=== PATIENT | male | born 1960 | race Caucasian/White ===

== ENCOUNTER 2021-11-27 05:22 | Day surgery (SDC) | payer MEDICARE, SELFPAY ==
[2021-11-23 08:27] VITALS: BMI 29.2
--- NOTE | 2021-11-27 07:16 | P.HP_ITS ---
Same Day Surgery H&P Indication for Procedure/HPI DATE OF PROCEDURE: November 27, 2021 CHIEF COMPLAINT/INDICATIONFOR SURGICAL PROCEDURE: Screening PREOP DIAGNOSIS: Screening PLANNED PROCEDURE: Operation Date: 11/27/21 08:00 Proposed Procedures p colonoscopy G0105/Z12.11(Not Applicable) - Jack Lewis MD Medications/Allergies* Home Medications Medication Instructions Recorded Confirmed Type carvedilol 12.5 mg tablet 12.5 mg PO BID 12/17/19 11/23/21 History lisinopril 10 mg tablet 10 mg PO DAILY 12/17/19 11/23/21 History rosuvastatin 20 mg tablet (Crestor) 20 mg PO DAILY 12/17/19 11/23/21 History ezetimibe 10 mg tablet (Zetia) 10 mg PO DAILY 01/25/20 11/23/21 History furosemide 20 mg tablet (Lasix) 60 mg PO DAILY tab 01/25/20 11/23/21 History potassium chloride 20 mEq 20 meq PO DAILY 01/25/20 11/23/21 History tablet,extended release quetiapine 100 mg tablet 300 mg PO .at hs tab 04/19/20 11/23/21 History warfarin 1 mg tablet See Rx Instructions .ROUTE .COMPLEX 04/19/20 11/23/21 History dulaglutide 1.5 mg/0.5 mL 1.5 mg SUBCUT DAILY ml 12/21/20 11/23/21 History subcutaneous pen injector (Trulicity) metformin 500 mg tablet,extended 500 mg PO BID 12/21/20 11/23/21 History release 24 hr Allergies/Adverse Reactions Allergy/AdvReac Type Severity Reaction Status Date / Time gabapentin Allergy Unknown Verified 11/27/21 07:06 Pertinent History/Comorbid Conditions* Medical History (Updated 03/22/20 @ 09:56 by DEMETRICE [address]) CAD (coronary artery disease) Essential (primary) hypertension 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 PAD (peripheral artery disease) Family History (Updated 12/17/19 @ 10:24 by Daysi Bloom LPN) CAD (coronary artery disease) Cancer Hypertension Stroke Social History Smoking and tobacco status: former smoker Quit status (tobacco): has quit using tobacco Year quit tobacco: Smoked 1 PDD since 13yo Former quit date comment: quit in 2019 Alcohol intake: never Pertinent Exam Findings alert, oriented x 3, clear to auscultation bilaterally, regular rate & rhythm, operative site marked and procedure specific exam findings Recommendations Surgery/Procedure today Coding Level of Care Code Acute 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
--- NOTE | 2021-11-27 07:24 | ANES.PREANE2 ---
Pre-Anesthetic Assessment Height/Weight: Height 1.75 m Weight 89.811 kg Preop Diagnosis: Screening Operation Date: 11/27/21 08:00 Proposed Procedures p colonoscopy G0105/Z12.11(Not Applicable) - Jack Lewis MD Familial anesthetic complications: None Was Beta Monique taken within 24 hours: Yes Was Clonidine taken within 24 hours: N/A Last intake: [place] Social Tobacco and No alcohol Exam alert, oriented x 3 and regular rate & rhythm rhonchi Airway Submandibular: within normal limits Cervical ROM: within normal limits Mallampati: Class II Dentition: full Pulmonary Chronic Obstructive Pulmonary Disease CV/HEM Coronary Artery Disease (CABG), Hypertension and Peripheral Vascular [place] [facility] [place] Lower Back Pain Chronic pain Anesthetic Plan ASA status: 3 Anesthesia: MAC Risk of > 500 ml blood loss (7ml/kg in children): No Medications/Allergies Home Medications Medication Instructions Recorded Confirmed Last Taken Type carvedilol 12.5 mg tablet 12.5 mg PO BID 12/17/19 11/23/21 11/27/21 History lisinopril 10 mg tablet 10 mg PO DAILY 12/17/19 11/23/21 1 Week Ago History ~11/20/21 rosuvastatin 20 mg tablet (Crestor) 20 mg PO DAILY 12/17/19 11/23/21 11/26/21 History ezetimibe 10 mg tablet (Zetia) 10 mg PO DAILY 01/25/20 11/23/21 11/26/21 History furosemide 20 mg tablet (Lasix) 60 mg PO DAILY tab 01/25/20 11/23/21 11/25/21 History potassium chloride 20 mEq 20 meq PO DAILY 01/25/20 11/23/21 1 Week Ago History tablet,extended release ~11/20/21 quetiapine 100 mg tablet 300 mg PO .at hs tab 04/19/20 11/23/21 11/25/21 History warfarin 1 mg tablet See Rx Instructions .ROUTE .COMPLEX 04/19/20 11/23/21 1 Week Ago History ~11/20/21 dulaglutide 1.5 mg/0.5 mL 1.5 mg SUBCUT DAILY ml 12/21/20 11/23/21 11/25/21 History subcutaneous pen injector (Trulicity) metformin 500 mg tablet,extended 500 mg PO BID 12/21/20 11/23/21 11/25/21 History release 24 hr venlafaxine 75 mg capsule,extended 75 mg PO DAILY #90 cap 03/15/21 11/23/21 11/25/21 Rx release 24 hr (Effexor XR) pantoprazole 40 mg tablet,delayed 40 mg PO DAILY #30 tab 04/05/21 11/23/21 11/25/21 Rx release (Protonix) cilostazol 100 mg tablet 100 mg PO DAILY #90 tab 06/08/21 11/23/21 11/25/21 Rx phenytoin sodium extended 100 mg 100 mg PO TID #90 cap 06/08/21 11/23/21 11/25/21 Rx capsule (Dilantin Extended) emtricitabine 200 mg-tenofovir 1 tab PO DAILY #90 tab 10/03/21 11/23/21 1 Week Ago Rx disoproxil fumarate 300 mg tablet ~11/20/21 (Truvada) clonazepam 0.5 mg tablet 0.5 mg PO TID #90 tab 10/30/21 11/23/21 11/24/21 Rx hydrocodone 5 mg-acetaminophen 325 1 tab PO TID PRN 5 Days #90 tab 10/30/21 11/23/21 3 Days Ago Rx mg tablet ~11/24/21 Allergies Allergy/AdvReac Type Severity Reaction Status Date / Time gabapentin Allergy Unknown Verified 11/27/21 07:06 [facility] Anesthesia Medical History CAD (coronary artery disease) Essential (primary) hypertension 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 PAD (peripheral artery disease) Family History Other CAD (coronary artery disease) Cancer Hypertension Stroke Social History (Updated 11/22/21 @ 10:26 by Eboni Ribeiro RN) Smoking and tobacco status: former smoker Quit status (tobacco): has quit using tobacco Year quit tobacco: Smoked 1 PDD since 13yo Former quit date comment: quit in 2019 Alcohol intake: never Data Anesthesia Cardiac Studies: No Data to Display
[2021-11-27 07:58] VITALS: BP 137/74; PULSE 78; RESP 18; TEMP 36.1; O2SAT 97
[2021-11-27] MEDS: sodium chloride 0.9% 1,000 ML 30 ML IV (08:00)
[2021-11-27 08:31] VITALS: BP 102/58; PULSE 80; RESP 18; TEMP 36.1; O2SAT 97
[2021-11-27 08:36] LABS: Basophils # 0.1 10^3/uL (0.0-0.1); Basophils % 0.9 %; Eosinophils # 0.1 10^3/uL (0.0-0.8); Eosinophils % 1.6 %; Hematocrit 43.5 % (42.0-52.0); Lymphocytes # 2.4 10^3/uL (0.8-4.8); Lymphocytes % 28.4 %; Mean Corpuscular HGB Conc 34.5 g/dL (30.0-36.0); Mean Corpuscular Hemoglobin 31.6 pg (28.0-34.0); Mean Corpuscular Volume 91.6 fl (80-94); Mean Platelet Volume 11.5 fL (7.4-10.4); Monocytes % 11.8 %; Neutrophils # 4.89 10^3/uL (1.8-7.7); Neutrophils % 57.1 %; Nucleated Red Blood Cells % 0 %; Platelet Count 151 10^3/cmm (130-400); Red Blood Count 4.75 10^6/uL (4.1-5.3); Red Cell Distribution Width 14.6 % (12.1-15.1); White Blood Count 8.6 10^3/uL (4.0-10.0)
--- NOTE | 2021-11-27 08:37 | ANE.PACU2 ---
Inpatient post-anesthesia follow up: Vital signs: Temperature 97.0 F Pulse Rate 80 Respiratory Rate 18 Blood Pressure 102/58 Pulse Oximetry 97 Oxygen Delivery Me thod Room Air Oxygen Flow Rate Fraction of Inspir ed Oxygen Hydration adequate: Yes Nausea and vomiting: No Mental status: Baseline
[2021-11-27 08:49] VITALS: BP 125/81; PULSE 80; RESP 16; O2SAT 100
[2021-11-27 08:51] LABS: Alanine Aminotransferase 25 U/L (0-41); Albumin Level 4.4 g/dL (3.5-5.2); Alkaline Phosphatase 128 IU/L (40-130); Anion Gap 18.4 (5-19); Aspartate Amino Transferase 19 U/L (0-40); Blood Urea Nitrogen 13 mg/dL (8-23); Calcium 9.5 mg/dL (8.5-10.5); Carbon Dioxide 22 mmol/L (22-29); Chloride 101 mmol/L (98-107); Chol HDL Ratio 4.62 mg/dL (1.0-5.00); Cholesterol 180 mg/dL (0-200); Globulin 2.3 g/dL (1.3-4.6); Glomerular Filtration Rate 98.6 mL/min (90-130); Glucose 94 mg/dL (65-115); HDL Cholesterol 39 mg/dL (60-100); LDL Cholesterol Calculated 87 mg/dL (50-129); LDL HDL Ratio 2.23 RATIO (0.00-3.22); Osmolality Calculated 286 mOsm/kg (285-295); Potassium 3.4 mmol/L (3.5-5.1); Sodium 138 mmol/L (136-145); Thyroid Stimulating Hormone 0.74 uIU/mL (0.27-4.20); Total Bilirubin 0.3 mg/dL (0.15-1.2); Total Protein 6.7 g/dL (6.6-8.7); Triglycerides 268 mg/dL (0-150)
--- NOTE | 2021-11-27 08:57 | CT_ITS ---
WS: [id number] LDCT LUNG CANCER SCREENING TECHNIQUE: Noncontrast CT of the chest with coronal and sagittal reformatted images. CLINICAL INFORMATION: history of tobacco use COMPARISON: DLP: 56.17 mGy.cm DIvol: Mean CTDIvol: 1.58 (mGy) All CT scans at [facility] use at least one of these dose optimization techniques: automat ed exposure control; mA and/or kV adjustment per patient size (includes targeted exams where dose is matched to clinical indication); or iterative reconstruction. FINDINGS: Calcific granuloma LEFT lower lobe. No acute pulmonary infiltrates. No focal pneumonia or pleural flu id. Slight fibrosis in the lung apices. No suspicious pulmonary parenchymal abnormalities. Prior sternotomy. CABG. Aortic calcification. No mediastinal or hilar lymphadenopathy. No axillary ly mphadenopathy. Adrenal glands are normal. Splenic granulomas. Schmorl's nodes in the mid thoracic spi ne. CT/CT lung screening [id number] IMPRESSION: LUNG-RADS: 1-Negative FOLLOW UP: 12 Month: Continue annual screening with LDCT
[2021-11-27 09:21] LABS: Estmated Average Glucose 114; Hemoglobin A1C 5.6 % (4.0-6.0)
== END 2021-11-27 08:54 | disposition home or self-care (01) ==
PROVIDERS: PCP Internal Medicine; Visit Provider Internal Medicine
PROC: 0DJD8ZZ Inspection of Lower Intestinal Tract, Via Natural or Artificial Opening Endoscopic (ICD-10-PCS; CPT 45378; principal; 2021-11-27 08:00)
DX: Z12.11 Encounter for screening for malignant neoplasm of colon (principal); D12.5 Benign neoplasm of sigmoid colon; D12.3 Benign neoplasm of transverse colon; Z79.01 Long term (current) use of anticoagulants; I25.10 Atherosclerotic heart disease of native coronary artery without angina pectoris; I10 Essential (primary) hypertension; Z82.49 Family history of ischemic heart disease and other diseases of the circulatory system; Z87.891 Personal history of nicotine dependence; Z95.1 Presence of aortocoronary bypass graft
CPT/HCPCS: 36415; 45385; 71271; 80053; 80061; 83036; 84153; 84443; 85025; J2704; J7030